=== PATIENT | female | born 1955 | race Caucasian/White ===

== ENCOUNTER 2018-10-19 09:09 | Emergency (ER) | payer OTHER ==
[2018-10-19 09:20] VITALS: BP 132/84; PULSE 84; TEMP 98.4; BMI 25.4
[2018-10-19] MEDS ORDERED: ACETAMINOPHEN 325 MG TABLET (FP) PO ONE (09:42)
--- NOTE | 2018-10-19 09:42 | PDOC ---
History of Present Illness - General Chief Complaint: Injury Stated Complaint: FALL, HIT FACE Time Seen by Provider: 10/19/18 09:39 - History of Present Illness Initial Comments: 10/19/18 10:34 Chief complaint: Facial injury History of present illness: Patient was walking along a trail, tripped over a tree root, fell and injured her nose, right hand, and right knee. He has pain, primarily over the bridge of the nose. No bleeding from inside the nose itself. Review of systems: Denies loss of consciousness, headache, confusion, head or neck pain, chest pain, shortness of breath, abdominal pain, nausea, vomiting, diarrhea, visual or focal neurologic symptoms, unsteadiness of gait. Complains of minor pain over the hamate in the right hand and the right patella. Remainder systems reviewed and found to be negative. Past medical history: Mood disorder with depression and anxiety, controlled on medication. Occasional migraines, none recently. Social/family history reviewed and noncontributory Physical exam: Alert oriented 3 well-developed well-nourished no acute distress cheerful and cooperative Afebrile, vital signs normal Head atraumatic. There is no sign of bruise, contusion, hematoma, abrasion, or laceration of the head or scalp. PERRLA 4 mm, fundi benign with sharp disc margins and good central venous pulsations. Ears and throat clear There is swelling over the bridge of the nose without other deformity, and minor abrasions without any deep lacerations. There is no active epistaxis. There is no swelling, or tenderness, over the other facial bones including the orbits, cheeks, or mandible other than a minor contusion of the point of the chin. Neck without point tenderness or deformity, full range of motion without pain Chest full breath sounds bilaterally, no rib cage or chest wall deformity or tenderness CV regular without murmur rub or gallop pulses full and symmetric no JVD or edema no bruits Abdomen soft nontender without mass or organomegaly No pelvic or spine point tenderness or deformity Neurological C2 to 12 intact. Strength full and symmetric. No focal sensory or motor deficits. Gait stable and unimpaired Extremities: Minor contusion of the right hand over the bulk of the hamate. No significant swelling or deformity. No sign of acute fracture Minor abrasions over the patella on the right, no swelling, effusion, deformity , with full range of motion of the knee. No sign of fracture or significant knee ligament injury Impression: Rule out nasal fracture or occult facial bone fracture, minor contusion of the right hand, minor abrasion of the right knee Plan: Facial x-rays are negative. There is no epistaxis. There are no lacerations requiring suturing. Tetanus booster was administered. Patient fully ambulatory and in no significant pain or other distress upon discharge to follow -up if her condition changes or other symptoms develop Past History - Past Medical History Allergies/Adverse Reactions: Allergies Allergy/AdvReac Type Severity Reaction Status Date / Time Sulfa (Sulfonamide Allergy Intermediate Rash Verified 08/24/16 16:01 Antibiotics) Home Medications: Ambulatory Orders Bupropion HCl [Wellbutrin -] 100 mg PO DAILY 08/24/16 Calcium Carbonate/Vitamin D3 [Calcium 600 + Vit D Tablet] 1 each PO DAILY Clomipramine HCl [Anafranil] 300 mg PO HS 08/24/16 Gabapentin [Neurontin] 300 mg PO QID 08/24/16 Multivitamins [Tab-A-Vit -] 1 tab PO DAILY 08/24/16 COPD: No - Immunization History Immunization Up to Date: No - Suicide/Smoking/Psychosocial Hx Smoking History: Never smoked Have you smoked in the past 12 months: No If you are a former smoker, when did you quit?: 35 YEARS AGO Information on smoking cessation initiated: No Hx Alcohol Use: No Drug/Substance Use Hx: No Substance Use Type: None *Physical Exam - Vital Signs Last Vital Signs Temp Pulse Resp BP Pulse Ox 98.4 F 84 20 132/84 100 10/19/18 09:09 10/19/18 09:09 10/19/18 09:09 10/19/18 09:09 10/19/18 09:09 *DC/Admit/Observation/Transfer Diagnosis at time of Disposition: Multiple contusions, Abrasions of multiple sites - Discharge Dispostion Disposition: HOME Condition at time of disposition: Improved Decision to Admit order: No - Referrals - Patient Instructions Printed Discharge Instructions: DI for Contusion, DI for Abrasion Additional Instructions: Use intermittent ice application to bruises. Tylenol for pain. Rest and no vigorous physical activity until adequately healed. Return to ER or see primary physician if pain worsens or any further symptoms develop. - Post Discharge Activity
[2018-10-19] MEDS ORDERED: ACETAMINOPHEN 325 MG TABLET (FP) ONE (09:49)
[2018-10-19] MEDS ORDERED: DIPHTH,PERTUSS(ACELL),TET 0.5 ML DISP.SYRIN IM ONE ×2 (10:39→10:42)
== END 2018-10-19 11:03 | disposition home or self-care (01) ==
LOC: FER 09:09
PROC: 3E0234Z Introduction of Serum, Toxoid and Vaccine into Muscle, Percutaneous Approach (ICD-10-PCS; principal; 2018-10-19)
DX: T14.8XXA Other injury of unspecified body region, initial encounter (principal); W01.198A Fall on same level from slipping, tripping and stumbling with subsequent striking against other object, initial encounter; Y93.89 Activity, other specified; Y92.89 Other specified places as the place of occurrence of the external cause
CPT/HCPCS: 70150-TC-FY; 90471; 90715; 99282-25

== ENCOUNTER 2023-02-02 16:32 | Emergency (ER) | payer OTHER ==
[2023-02-02 16:47] VITALS: BP 171/89; PULSE 66; RESP 20; TEMP 87.2; BMI 24.5
[2023-02-02] MEDS ORDERED: ACETAMINOPHEN 500 MG TABLET (FP) ONE (17:56)
[2023-02-02] MEDS ORDERED: ACETAMINOPHEN 500 MG TABLET (FP) PO ONE (18:02)
[2023-02-02] MEDS ORDERED: AMOX TR/POT CLAV 875MG/125MG TABLETS (FP) ONE (20:11)
[2023-02-02] MEDS ORDERED: AMOX TR/POT CLAV 875MG/125MG TABLETS (FP) PO ONE (20:13)
== END 2023-02-02 20:22 | disposition home or self-care (01) ==
LOC: FER 16:32
DX: S02.85XA Fracture of orbit, unspecified, initial encounter for closed fracture (principal); S02.40EA Zygomatic fracture, right side, initial encounter for closed fracture; S02.401A Maxillary fracture, unspecified side, initial encounter for closed fracture; W01.0XXA Fall on same level from slipping, tripping and stumbling without subsequent striking against object, initial encounter
CPT/HCPCS: 70450-TC; 70486-TC; 72125-TC; 99284-25